=== PATIENT | female | born 1930 | race Caucasian/White ===

== ENCOUNTER 2019-02-16 06:23 | Emergency (ER) | payer MEDICARE ==
[~2019-02-16 06:23] MED LIST: ADV100/50 INH; ALB17R INH; ATOR20TA22 PO; CLOP75TA PO; LISI5TAB25 PO; METO25TA23 PO; METO50TA19 PO; SIMV5TAB56 PO
[2019-02-16] MEDS ORDERED: methylPREDNIS SUCC 125 MG/2ML IVP ONE (06:35)
[2019-02-16] MEDS ORDERED: ALBUTEROL/IPRATROPIUM 3 ML NEB NEB ONE ×2 (06:35→07:20)
[2019-02-16 07:00] LABS: PLATELET COUNT, AUTOMATED 151 K/uL (150-450)
--- NOTE | 2019-02-16 07:01 | EKG ---
FACILITY: [facility] - [place] PATIENT NAME: KRYSTA SOTO : [id number] MR: [id number] V: [id number] EXAM DATE: ORDERING PHYSICIAN: ARCHANA DASILVA TECHNOLOGIST: HC Test Reason : DYSPNEA Blood Pressure : / mmHG Vent. Rate : 072 BPM Atrial Rate : 072 BPM P-R Int : 166 ms QRS Dur : 080 ms QT Int : 426 ms P-R-T Axes : 060 -31 057 degrees QTc Int : 466 ms Sinus rhythm with occasional premature ventricular complexes Left axis deviation Anterior infarct , age undetermined Abnormal ECG When compared with ECG of 13-APR-2017 08:30, premature ventricular complexes are now present premature atrial complexes are no longer present Confirmed by Carlos Maradiaga ([id number]) on 02/16/2019 1:05:50 PM Referred By: VIDYA Confirmed By:Carlos Cesar
--- NOTE | 2019-02-16 07:10 | ER Report ---
History and Physical Time Seen By MD: 07:06 Hx. of Stated Complaint: congestion, cough. started yesterday HPI/ROS CHIEF COMPLAINT: Shortness of breath HISTORY OF PRESENT ILLNESS: Patient is an 88-year-old female who presents to the emergency department for evaluation of shortness of breath. Patient states that her son was recently treated for pneumonia she feels that she may have "caught his cold". She states that last night she felt short of breath she denies any chest pain or pressure. She does have a prior past medical history for coronary artery disease and MA. She also has reported history of a thoracic aortic aneurysm that she has elected not to treat. Patient also has a history of reactive airways disease. She does have oxygen for use as needed which she did use last night. However normally she does not wear oxygen during the day or at nighttime. She denies fevers or chills. She denies nausea vomiting or abdominal pain. REVIEW OF SYSTEMS: Constitutional: No fever, no chills. Eyes: No discharge. ENT: No sore throat. Cardiovascular: No chest pain, no palpitations. Respiratory: Shortness of breath Gastrointestinal: No abdominal pain, no vomiting. Genitourinary: No hematuria. Musculoskeletal: No back pain. Skin: No rashes. Neurological: No headache. Allergies: Coded Allergies: latex (Verified Adverse Reaction, Mild, RASH, 02/16/19) ELASTIC CAUSES RASH Home Meds Active Scripts Methylprednisolone (METHYLPREDNISOLONE) 4 Mg Tab.ds.pk, 4 MG PO DIRECTED, #1 PACK Prov:PAMELA BUCHANAN MD 02/16/19 Discontinued Reported Medications Clopidogrel Bisulfate (CLOPIDOGREL) 75 Mg Tablet, 1 TAB PO QDAY, TAB 04/02/17 Discontinued Scripts Atorvastatin Calcium (LIPITOR) 20 Mg Tablet, 1 TAB PO QDAY, #90 TAB 1 Refill Prov:BEREKET SAM APRN 05/09/17 Metoprolol Succinate (METOPROLOL SUCCINATE) 25 Mg Tab.er.24h, 1 TAB PO DAILY, #90 TAB 3 Refills Prov:BEREKET SAM APRN 05/08/17 Lisinopril (LISINOPRIL) 5 Mg Tablet, 1 TAB PO DAILY, #90 TAB 3 Refills Prov:BEREKET SAM APRN 8/7/17 Past Medical/Surgical History Past medical history for coronary artery disease, hyperlipidemia, hypertension myocardial infarction also history of thoracic aortic aneurysm that she has not elected to treat surgically Hx Smoking: No Smoking Status: Former Smoker Exposure to Second Hand Smoke?: No Constitutional Vital Sign - Last 24 Hours 02/16/19 02/16/19 02/16/19 02/16/19 06:28 06:39 06:45 06:50 Temp 97.7 Pulse 74 68 Resp 14 16 B/P (MAP) 167/74 Pulse Ox 88 96 O2 Delivery Room Air Nasal Cannula O2 Flow Rate 2.0 2.0 02/16/19 02/16/19 02/16/19 02/16/19 06:58 07:00 07:17 07:30 Pulse 71 67 70 Resp 16 23 25 B/P (MAP) 156/69 (98) 165/70 (101) 165/69 (101) Pulse Ox 97 95 02/16/19 02/16/19 02/16/19 02/16/19 07:36 07:36 07:44 08:00 Pulse 67 73 81 Resp 16 16 21 B/P (MAP) 141/58 (85) Pulse Ox 93 94 O2 Delivery Nasal Cannula O2 Flow Rate 2.0 02/16/19 02/16/19 08:30 09:12 Pulse 83 Resp 21 B/P (MAP) 133/65 (87) Pulse Ox 94 Physical Exam General Appearance: The patient is alert, has no immediate need for airway protection and no signs of toxicity. Eyes: Pupils equal and round no pallor or injection. ENT, Mouth: Mucous membranes are moist. Respiratory: There are no retractions, lungs are clear to auscultation. Cardiovascular: Regular rate and rhythm. Gastrointestinal: Abdomen is soft and non tender, no masses, bowel sounds normal. Neurological: Awake and alert Skin: Warm and dry, no rashes. Musculoskeletal: Neck is supple non tender. Extremities are nontender, nonswollen and have full range of motion. [ ] Medical Decision Making Data Points Result Diagram: 02/16/19 0640 02/16/19 0640 Laboratory Hematology Test 02/16/19 06:40 02/16/19 07:17 Red Blood Count 5.44 M/uL (4.17-5.56) Mean Corpuscular Volume 82.1 fL (80.0-96.0) Mean Corpuscular Hemoglobin 26.8 pg (26.0-33.0) Mean Corpuscular Hemoglobin Concent 32.7 g/dL (32.0-36.0) Red Cell Distribution Width 15.0 % (11.5-14.5) Mean Platelet Volume 7.2 fL (7.2-11.1) Neutrophils (%) (Auto) 56.6 % (39.4-72.5) Lymphocytes (%) (Auto) 28.9 % (17.6-49.6) Monocytes (%) (Auto) 12.1 % (4.1-12.4) Eosinophils (%) (Auto) 1.7 % (0.4-6.7) Basophils (%) (Auto) 0.7 % (0.3-1.4) Nucleated RBC Relative Count (auto) 0.2 /100WBC Neutrophils # (Auto) 2.3 K/uL (2.0-7.4) Lymphocytes # (Auto) 1.2 K/uL (1.3-3.6) Monocytes # (Auto) 0.5 K/uL (0.3-1.0) Eosinophils # (Auto) 0.1 K/uL (0.0-0.5) Basophils # (Auto) 0.0 K/uL (0.0-0.1) Nucleated RBC Absolute Count (auto) 0.01 K/uL D-Dimer Quantitative (PE/DVT) 8.81 ug/ml (0-0.50) Sodium Level 139 mmol/L (137-145) Potassium Level 3.9 mmol/L (3.5-5.0) Chloride Level 103 mmol/L (98-107) Carbon Dioxide Level 27 mmol/L (22-31) Blood Urea Nitrogen 15 mg/dl (7-18) Creatinine 0.90 mg/dl (0.52-1.04) Glomerular Filtration Rate Calc 59.1 Random Glucose 93 mg/dl (75-110) Lactate 2.1 mmol/L (0.7-2.1) Calcium Level 8.5 mg/dl (8.4-10.2) Total Bilirubin 0.4 mg/dl (0.2-1.3) Aspartate Amino Transf (AST/SGOT) 23 U/L (0-35) Alanine Aminotransferase (ALT/SGPT) 17 U/L (0-56) Alkaline Phosphatase 109 U/L (0-126) Troponin I < 0.012 ng/ml B-Type Natriuretic Peptide 211 pg/ml (0-100) Total Protein 7.5 g/dl (6.3-8.2) Albumin 3.9 g/dl (3.5-5.0) Urine Color Yellow Urine Clarity Slightly-cloudy Urine pH 5.0 pH (4.8-9.5) Urine Specific [place] 1.021 Urine Protein 30 mg/dL (NEGATIVE) Urine Glucose (UA) Negative mg/dL (NEGATIVE) Urine Ketones Negative mg/dL (NEGATIVE) Urine Blood Small (NEGATIVE) Urine Nitrite Negative (NEGATIVE) Urine Bilirubin Negative (NEGATIVE) Urine Urobilinogen 2.0 mg/dL (0.2-1.9) Urine Leukocyte Esterase Large (NEGATIVE) Urine RBC 31 /HPF (0-2/HPF) Urine WBC 78 /HPF (0-5/HPF) Urine Squamous Epithelial Cells Many /LPF (</=FEW) Urine Transitional Epithelial Cells Many /LPF (NONE-FEW) Urine Bacteria Negative /HPF (NONE-FEW) Urine Mucus Few /HPF (NONE-FEW) Chemistry Test 02/16/19 06:40 02/16/19 07:17 White Blood Count 4.1 k/uL (4.5-11.0) Red Blood Count 5.44 M/uL (4.17-5.56) Hemoglobin 14.6 g/dL (12.0-16.0) Hematocrit 44.6 % (34.0-47.0) Mean Corpuscular Volume 82.1 fL (80.0-96.0) Mean Corpuscular Hemoglobin 26.8 pg (26.0-33.0) Mean Corpuscular Hemoglobin Concent 32.7 g/dL (32.0-36.0) Red Cell Distribution Width 15.0 % (11.5-14.5) Platelet Count 151 K/uL (150-450) Mean Platelet Volume 7.2 fL (7.2-11.1) Neutrophils (%) (Auto) 56.6 % (39.4-72.5) Lymphocytes (%) (Auto) 28.9 % (17.6-49.6) Monocytes (%) (Auto) 12.1 % (4.1-12.4) Eosinophils (%) (Auto) 1.7 % (0.4-6.7) Basophils (%) (Auto) 0.7 % (0.3-1.4) Nucleated RBC Relative Count (auto) 0.2 /100WBC Neutrophils # (Auto) 2.3 K/uL (2.0-7.4) Lymphocytes # (Auto) 1.2 K/uL (1.3-3.6) Monocytes # (Auto) 0.5 K/uL (0.3-1.0) Eosinophils # (Auto) 0.1 K/uL (0.0-0.5) Basophils # (Auto) 0.0 K/uL (0.0-0.1) Nucleated RBC Absolute Count (auto) 0.01 K/uL D-Dimer Quantitative (PE/DVT) 8.81 ug/ml (0-0.50) Glomerular Filtration Rate Calc 59.1 Lactate 2.1 mmol/L (0.7-2.1) Calcium Level 8.5 mg/dl (8.4-10.2) Total Bilirubin 0.4 mg/dl (0.2-1.3) Aspartate Amino Transf (AST/SGOT) 23 U/L (0-35) Alanine Aminotransferase (ALT/SGPT) 17 U/L (0-56) Alkaline Phosphatase 109 U/L (0-126) Troponin I < 0.012 ng/ml B-Type Natriuretic Peptide 211 pg/ml (0-100) Total Protein 7.5 g/dl (6.3-8.2) Albumin 3.9 g/dl (3.5-5.0) Urine Color Yellow Urine Clarity Slightly-cloudy Urine pH 5.0 pH (4.8-9.5) Urine Specific [place] 1.021 Urine Protein 30 mg/dL (NEGATIVE) Urine Glucose (UA) Negative mg/dL (NEGATIVE) Urine Ketones Negative mg/dL (NEGATIVE) Urine Blood Small (NEGATIVE) Urine Nitrite Negative (NEGATIVE) Urine Bilirubin Negative (NEGATIVE) Urine Urobilinogen 2.0 mg/dL (0.2-1.9) Urine Leukocyte Esterase Large (NEGATIVE) Urine RBC 31 /HPF (0-2/HPF) Urine WBC 78 /HPF (0-5/HPF) Urine Squamous Epithelial Cells Many /LPF (</=FEW) Urine Transitional Epithelial Cells Many /LPF (NONE-FEW) Urine Bacteria Negative /HPF (NONE-FEW) Urine Mucus Few /HPF (NONE-FEW) Coagulation Test 02/16/19 06:40 D-Dimer Quantitative (PE/DVT) 8.81 ug/ml Urinalysis Test 02/16/19 07:17 Urine Color Yellow Urine Clarity Slightly-cloudy Urine pH 5.0 pH (4.8-9.5) Urine Specific [place] 1.021 Urine Protein 30 mg/dL (NEGATIVE) Urine Glucose (UA) Negative mg/dL (NEGATIVE) Urine Ketones Negative mg/dL (NEGATIVE) Urine Blood Small (NEGATIVE) Urine Nitrite Negative (NEGATIVE) Urine Bilirubin Negative (NEGATIVE) Urine Urobilinogen 2.0 mg/dL (0.2-1.9) Urine Leukocyte Esterase Large (NEGATIVE) Urine RBC 31 /HPF (0-2/HPF) Urine WBC 78 /HPF (0-5/HPF) Urine Squamous Epithelial Cells Many /LPF (</=FEW) Urine Transitional Epithelial Cells Many /LPF (NONE-FEW) Urine Bacteria Negative /HPF (NONE-FEW) Urine Mucus Few /HPF (NONE-FEW) Microbiology Microbiology Date/Time Source Procedure Growth Status 02/16/19 07:20 Blood Peripheral Draw Blood Culture - Preliminary NO GROWTH SO FAR, SET LATE. REINCUBATED Resulted 02/16/19 06:40 Blood Peripheral Draw Blood Culture - Preliminary NO GROWTH SO FAR, SET LATE. REINCUBATED Resulted EKG/Imaging EKG Interpretation EKG shows sinus rhythm with occasional PVCs no significant ST segment or T-wave abnormalities. Monitor Interpretation: Normal Sinus Rhythm ED Course/Re-evaluation ED Course CT angiogram of the chest from 2013 showed diffuse aneurysmal dilatation of the thoracic aorta with extensive eccentric mural thrombus in the descending thoracic aorta appearing similar to August 2013. CT scan today showed enlargement of the thoracic aortic aneurysm to 5.4 cm no active dissection or bleeding was noted CT was negative for pulmonary embolism as well as pneumonia. CT findings were discussed with the patient, she is aware of her aneurysm and has elected not to perform any type of surgery despite advancing in size. She is aware and is not seeking to address this problem at this time. Patient is feeling improved after breathing treatments and oxygen we will discharge home with instructions to follow-up with her primary care provider Monday if she is not feeling better or to return sooner if symptoms worsen Decision to Disposition Date: February 16, 2019 Decision to Disposition Time: 09:13 Depart Departure Latest Vital Signs Vital Signs Date Time Temp Pulse Resp B/P (MAP) Pulse Ox O2 Delivery O2 Flow Rate FiO2 02/16/19 09:12 133/65 (87) 02/16/19 08:30 83 21 94 02/16/19 07:36 Nasal Cannula 2.0 02/16/19 06:28 97.7 Impression: Primary Impression: COPD exacerbation Condition: Improved Disposition: HOME OR SELF-CARE Referrals: BEREKET ASM APRN [employer] (PCP) 2 Days if symptoms persist New Scripts Methylprednisolone (METHYLPREDNISOLONE) 4 Mg Tab.ds.pk 4 MG PO DIRECTED, #1 PACK Prov: PAMELA BUCHANAN MD 02/16/19 Patient Instructions: COPD (Chronic Obstructive Pulmonary Disease) (DC) Additional Instructions: Wear you oxygen during the day and at nighttime for the next 72 hours then as needed. Use your prescribed albuterol inhaler 2 puffs by mouth every 6 hours for the next 72 hours then 1-2 puffs by mouth every 4-6 hours as needed for cough or shortness of breath. Follow-up with your primary care provider on Monday for symptoms persist or return to the emergency department immediately if her symptoms worsen at any time. PAMELA BUCHANAN MD February 16, 2019 07:10
--- NOTE | 2019-02-16 07:35 | RADIOLOGY IMAGING REPORT ---
FACILITY: [facility] PATIENT NAME: Lisa Elam : 1930 MR: [id number] V: [id number] EXAM DATE: ORDERING PHYSICIAN: ARCHANA DASILVA TECHNOLOGIST: Location: [facility] Patient: Lisa Elam : 1930 Visit/Account:[id number] Date of Sevice: 02/16/2019 CHEST PA LAT HISTORY: Respiratory distress. COMPARISON: Chest CTs 02/28/2014 and 08/02/2013. No prior chest x-rays. TECHNIQUE: PA and lateral views of the chest. FINDINGS: Tubes/lines/hardware: There are coronary stents. Pulmonary/pleura: There is hyperinflation, flattening of the diaphragm, and mild prominence of the re trosternal airspace. Lungs are clear. There is no pneumothorax or pleural effusion. Cardiomediastinal: Cardiac and mediastinal silhouettes are within normal limits. There is mild aortic calcification. Bones/soft tissues: No acute osseous abnormality. There is mild degenerative change of the spine. The visible abdomen is normal. IMPRESSION: 1. No acute cardiopulmonary process. 2. Hyperinflation. Findings can be seen with deep inspiration as well as COPD. Report Dictated By: Mel Read at 02/16/2019 7:25 AM Report E-Signed By: Mel Read at 02/16/2019 7:30 AM WSN:[id number]
[2019-02-16] MEDS ORDERED: IOPAMIDOL 76% 150 ML INFUS BTL 150 ML ONE (08:16)
[2019-02-16] MEDS ORDERED: NS(*) 0.9% 50 ML BAG 50 ML ONE (08:19)
[2019-02-16] MEDS ORDERED: METH4TAB66 PO (09:01)
--- NOTE | 2019-02-16 09:09 | RADIOLOGY IMAGING REPORT ---
FAC[facility] PATIENT NAME: Lisa Elam : 1930 MR: [id number] V: [id number] EXAM DATE: ORDERING PHYSICIAN: PAMELA BUCHANAN TECHNOLOGIST: Location: [facility] Patient: Lisa Elam : 1930 Visit/Account:[id number] Date of Sevice: 02/16/[address] angiogram with contrast. HISTORY: Shortness of breath, history of 4.7 cm thoracic aortic aneurysm. COMPARISON: 02/28/2014. 3 mm thick and [address] images were obtained of the chest using 75 mL intravenous Isovue-3 70. 3-D SLAB nip instruction images were obtained of the pulmonary arteries. One of the following dos e optimization techniques was utilized in the performance of this exam: Automated exposure control; a djustment of the mA and/or kV according to the patient's size; or use of an iterative reconstruction technique. Specific details can be referenced in the facility's radiology CT exam operational polic y. FINDINGS: The central pulmonary arteries are mildly enlarged. No filling defects are identified to suggest acut e pulmonary embolism. The ascending aorta measures 5.2 cm in AP diameter, increased compared to previ ous. The upper descending aorta measures 3.6 cm in AP diameter, increased compared to previous. The l ower descending aorta measures 4.1 cm in oblique diameter. The thoracic aorta is moderately calcified . A moderate amount of mural thrombus is present in the descending aorta. The coronary arteries are h eavily calcified. The heart size is normal. No bulky adenopathy. The trachea and central bronchi are unremarkable. The lungs are voluminous. Mild streaky densities are scattered in the periphery of both lungs. Mild degenerative changes are present in the spine. The upper abdominal aorta is calcified and mildly ectatic. IMPRESSION: Negative for acute pulmonary embolism. Aortic and coronary atherosclerosis. 5.2 cm thoracic aortic aneurysm, increased in size compared to previous. COPD. Results were discussed with PAMELA BUCHANAN at 02/16/2019 8:59 AM. Report Dictated By: Salbador Clinton MD at 02/16/2019 8:44 AM Report E-Signed By: Salbador Clinton MD at 02/16/2019 9:05 AM WSN:[id number]
[2019-02-16 09:12] VITALS: BP 133/65
[2019-02-17] MEDS ORDERED: AZIT-18 PO (19:58)
== END 2019-02-16 09:16 | disposition home or self-care (01) ==
LOC: ER 08:15
DX: J44.1 Chronic obstructive pulmonary disease with (acute) exacerbation (principal)
CPT/HCPCS: 36415; 71046; 71275; 81001; 83605; 83880; 84484; 85025; 85379; 87040; 93005; 94640; 96374; 99284; J2930; J7050; J7620; Q9967; 82040; 82247; 82310; 82374; 82435; 82565; 82947; 84075; 84132; 84155; 84295; 84450; 84460; 84520

== ENCOUNTER 2019-02-17 16:58 | Emergency (ER) | payer MEDICARE ==
[~2019-02-17 16:58] MED LIST changes: +METH4TAB66 PO
--- NOTE | 2019-02-17 17:18 | ER Report ---
History and Physical Time Seen By MD: 17:06 HPI/ROS CHIEF COMPLAINT: Shortness of breath HISTORY OF PRESENT ILLNESS: This is an 88-year-old female presents to the emergency department for symptoms similar to yesterday, shortness of breath. She had an extensive workup yesterday, a CTA was negative for a pulmonary embolus, she does have a known thoracic aortic aneurysm, in 2013 it measured 4.7 cm, yesterday showing 5.2 cm. Patient was updated on this information. She did receive nebulizers, given steroids to go home, was feeling better yesterday and through the morning, she states that around noon today she began to have chest congestion again and coughing up small amount of mucus. She denies chest pain, diaphoresis, rashes, nausea or vomiting. Denies headaches. REVIEW OF SYSTEMS: Constitutional: No fever, no chills. Eyes: No discharge. ENT: No sore throat. Cardiovascular: No chest pain, no palpitations. Respiratory: As above. Gastrointestinal: No abdominal pain, no vomiting. Genitourinary: No hematuria. Musculoskeletal: No back pain. Skin: No rashes. Neurological: No headache. Allergies: Coded Allergies: latex (Verified Adverse Reaction, Mild, RASH, 02/16/19) ELASTIC CAUSES RASH Home Meds Active Scripts Azithromycin 250 Mg Tab (AZITHROMYCIN 250 MG TAB) 250 Mg Tablet, 1 TAB PO QDAY, #4 TAB 1 tab a day until gone. Prov:CARLEY VIRK-BC 02/17/19 Methylprednisolone (METHYLPREDNISOLONE) 4 Mg Tab.ds.pk, 4 MG PO DIRECTED, #1 PACK Prov:PAMELA BUCHANAN MD 02/16/19 Discontinued Reported Medications Clopidogrel Bisulfate (CLOPIDOGREL) 75 Mg Tablet, 1 TAB PO QDAY, TAB 04/02/17 Discontinued Scripts Atorvastatin Calcium (LIPITOR) 20 Mg Tablet, 1 TAB PO QDAY, #90 TAB 1 Refill Prov:BEREKET SAM APRN-C 05/09/17 Metoprolol Succinate (METOPROLOL SUCCINATE) 25 Mg Tab.er.24h, 1 TAB PO DAILY, #90 TAB 3 Refills Prov:BEREKET SAM APRN-C 05/08/17 Lisinopril (LISINOPRIL) 5 Mg Tablet, 1 TAB PO DAILY, #90 TAB 3 Refills Prov:BEREKET SAM EDWARDO COMMUNITY SERVICE MANAGER-C 05/08/17 Past Medical/Surgical History The patient has a past medical and surgical history of macular degeneration, hard of hearing, myocardial infarction, aortic aneurysm, increasing in size, mild cardial infarction, congestive heart failure, coronary artery disease, 3 coronary artery stents, hyperlipidemia, asthma, bronchitis, emphysema, GERD, hysterectomy. Reviewed Nurses Notes: Yes Hx Smoking: No Smoking Status: Former Smoker Exposure to Second Hand Smoke?: No Constitutional Vital Sign - Last 24 Hours 02/17/19 02/17/19 02/17/19 02/17/19 17:01 17:05 17:07 17:13 Temp 98.3 Pulse 84 77 Resp 16 28 B/P (MAP) 196/98 (130) 196/98 180/81 (114) Pulse Ox 86 96 O2 Delivery Room Air 02/17/19 02/17/19 02/17/19 02/17/19 17:28 17:29 17:43 17:45 Pulse 74 73 78 Resp 19 16 18 Pulse Ox 95 94 O2 Flow Rate 2.0 02/17/19 02/17/19 02/17/19 02/17/19 17:58 18:13 18:28 18:30 Pulse 87 89 82 Resp 24 23 36 B/P (MAP) 159/79 (105) Pulse Ox 95 93 02/17/19 02/17/19 02/17/19 02/17/19 18:43 18:45 19:00 19:05 Pulse 79 83 81 Resp 22 19 15 B/P (MAP) 144/72 (96) Pulse Ox 96 93 95 02/17/19 02/17/19 02/17/19 02/17/19 19:10 19:30 19:40 20:00 Pulse 83 82 Resp 20 14 B/P (MAP) 149/68 (95) 150/69 (96) Pulse Ox 93 89 02/17/19 02/17/19 02/17/19 02/17/19 20:10 20:12 20:12 20:19 Pulse 73 84 92 Resp 15 20 1 Pulse Ox 98 95 O2 Delivery Nasal Cannula O2 Flow Rate 1.0 02/17/19 20:32 B/P (MAP) 154/65 (94) Physical Exam General Appearance: The patient is alert, has no immediate need for airway protection and no signs of toxicity. Eyes: Pupils equal and round no pallor or injection. ENT, Mouth: Mucous membranes are moist. Respiratory: There are no retractions, coarse in the right upper and left upper lobes, otherwise unremarkable. Cardiovascular: Regular rate and rhythm. No murmurs, clicks or rubs. Gastrointestinal: Abdomen is soft and non tender, no masses, bowel sounds normal. Neurological: Alert and oriented 4. Moving all extremities. Following all commands. No focal neuro deficits. Skin: Warm and dry, no rashes. Musculoskeletal: Neck is supple non tender. Extremities are nontender, nonswollen and have full range of motion. DIFFERENTIAL DIAGNOSIS: After history and physical exam differential diagnosis was considered for shortness of breath including but not limited to pulmonary infectious process, COPD, asthma, pulmonary embolus and congestive heart failure. Medical Decision Making Data Points Result Diagram: 02/17/19 1717 02/17/19 1717 Laboratory Hematology Test 02/17/19 17:17 Red Blood Count 5.34 M/uL (4.17-5.56) Mean Corpuscular Volume 82.1 fL (80.0-96.0) Mean Corpuscular Hemoglobin 26.3 pg (26.0-33.0) Mean Corpuscular Hemoglobin Concent 32.1 g/dL (32.0-36.0) Red Cell Distribution Width 15.0 % (11.5-14.5) Mean Platelet Volume 7.6 fL (7.2-11.1) Neutrophils (%) (Auto) 89.0 % (39.4-72.5) Lymphocytes (%) (Auto) 5.7 % (17.6-49.6) Monocytes (%) (Auto) 5.2 % (4.1-12.4) Eosinophils (%) (Auto) 0.0 % (0.4-6.7) Basophils (%) (Auto) 0.1 % (0.3-1.4) Nucleated RBC Relative Count (auto) 0.0 /100WBC Neutrophils # (Auto) 11.8 K/uL (2.0-7.4) Lymphocytes # (Auto) 0.8 K/uL (1.3-3.6) Monocytes # (Auto) 0.7 K/uL (0.3-1.0) Eosinophils # (Auto) 0.0 K/uL (0.0-0.5) Basophils # (Auto) 0.0 K/uL (0.0-0.1) Nucleated RBC Absolute Count (auto) 0.00 K/uL Sodium Level 139 mmol/L (137-145) Potassium Level 4.3 mmol/L (3.5-5.0) Chloride Level 103 mmol/L (98-107) Carbon Dioxide Level 27 mmol/L (22-31) Blood Urea Nitrogen 22 mg/dl (7-18) Creatinine 1.00 mg/dl (0.52-1.04) Glomerular Filtration Rate Calc 52.3 Random Glucose 113 mg/dl (75-110) Calcium Level 8.8 mg/dl (8.4-10.2) Total Bilirubin 0.2 mg/dl (0.2-1.3) Aspartate Amino Transf (AST/SGOT) 26 U/L (0-35) Alanine Aminotransferase (ALT/SGPT) 18 U/L (0-56) Alkaline Phosphatase 105 U/L (0-126) Total Protein 7.6 g/dl (6.3-8.2) Albumin 4.0 g/dl (3.5-5.0) Chemistry Test 02/17/19 17:17 White Blood Count 13.2 k/uL (4.5-11.0) Red Blood Count 5.34 M/uL (4.17-5.56) Hemoglobin 14.1 g/dL (12.0-16.0) Hematocrit 43.9 % (34.0-47.0) Mean Corpuscular Volume 82.1 fL (80.0-96.0) Mean Corpuscular Hemoglobin 26.3 pg (26.0-33.0) Mean Corpuscular Hemoglobin Concent 32.1 g/dL (32.0-36.0) Red Cell Distribution Width 15.0 % (11.5-14.5) Platelet Count 172 K/uL (150-450) Mean Platelet Volume 7.6 fL (7.2-11.1) Neutrophils (%) (Auto) 89.0 % (39.4-72.5) Lymphocytes (%) (Auto) 5.7 % (17.6-49.6) Monocytes (%) (Auto) 5.2 % (4.1-12.4) Eosinophils (%) (Auto) 0.0 % (0.4-6.7) Basophils (%) (Auto) 0.1 % (0.3-1.4) Nucleated RBC Relative Count (auto) 0.0 /100WBC Neutrophils # (Auto) 11.8 K/uL (2.0-7.4) Lymphocytes # (Auto) 0.8 K/uL (1.3-3.6) Monocytes # (Auto) 0.7 K/uL (0.3-1.0) Eosinophils # (Auto) 0.0 K/uL (0.0-0.5) Basophils # (Auto) 0.0 K/uL (0.0-0.1) Nucleated RBC Absolute Count (auto) 0.00 K/uL Glomerular Filtration Rate Calc 52.3 Calcium Level 8.8 mg/dl (8.4-10.2) Total Bilirubin 0.2 mg/dl (0.2-1.3) Aspartate Amino Transf (AST/SGOT) 26 U/L (0-35) Alanine Aminotransferase (ALT/SGPT) 18 U/L (0-56) Alkaline Phosphatase 105 U/L (0-126) Total Protein 7.6 g/dl (6.3-8.2) Albumin 4.0 g/dl (3.5-5.0) EKG/Imaging EKG Interpretation 12 lead EKG: Time of EKG 1715. Rhythm: Sinus rhythm, occasional PVC, ventricular rate 78 bpm. [place]: normal QRS: normal ST segments: No ST depression or elevation identified. No significant changes from the 02/16/2019 EKG, other than amplitude of the unifocal PVC's. Imaging PATIENT NAME: Lisa Elam : 1930 MR: [id number] V: [id number] EXAM DATE: [id number] ORDERING PHYSICIAN: CARLEY VIRK TECHNOLOGIST: Location: [facility] - [place] Patient: Lisa Elam : 1930 Visit/Account:[id number] Date of Sevice: 02/17/2019 CHEST PA LAT COMPARISONS: 2 view chest dated February 16, 2019 ADDITIONAL PERTINENT HISTORY: History of asthma and congestion FINDINGS: Cardiomediastinal silhouette: Negative. Pulmonary vasculature: Negative. Lung kent: Negative. Pleural spaces: Negative. Osseous structures: Negative. Surrounding soft tissues: Negative. IMPRESSION: No evidence of acute cardiopulmonary disease. Report Dictated By: Bakari Stevens MD at 02/17/2019 6:54 PM Report E-Signed By: Bakari Stevens MD at 02/17/2019 6:56 PM WSN:[email or web address] ED Course/Re-evaluation Clinical Indication for ER IV: IV Access ED Course The patient was admitted to room. A history and physical were obtained. Differential diagnoses were considered. An x-ray of the chest was negative for any acute cardiopulmonary process. An IV was started. A CBC, CMP were obtained. There was a jump in the patient's white blood cell count from 4.1 yesterday 213.2 today with a left shift, chemistry unremarkable. Patient was given 2 DuoNeb's with improvement of her symptoms, she continues to produce small amounts of mucus. Although the chest x-ray was negative, with the elevation in white blood cell counts I did start the patient on azithromycin tonight, she was sent home with the remainder of the azithromycin. She was also sent home with an inhaler, she is currently taking prednisone dose prescribed to her yesterday. Patient will follow-up with her primary care provider this week for reevaluation. She had no other questions or concerns, was agreeable with this plan of care and discharged home. Encouraged to return to the ER should she de velop any other concerning symptoms such as fevers, chest pain or increased shortness breath. Decision to Disposition Date: February 17, 2019 Decision to Disposition Time: 19:57 Depart Departure Latest Vital Signs Vital Signs Date Time Temp Pulse Resp B/P (MAP) Pulse Ox O2 Delivery O2 Flow Rate FiO2 02/17/19 20:32 154/65 (94) 02/17/19 20:19 92 1 02/17/19 20:12 95 Nasal Cannula 1.0 02/17/19 17:05 98.3 Impression: Primary Impression: Bronchitis Condition: Improved Disposition: HOME OR SELF-CARE Referrals: BEREKET SAM APRN COMMUNITY SERVICE MANAGER-C (PCP) 5 Days New Scripts Azithromycin 250 Mg Tab (AZITHROMYCIN 250 MG TAB) 250 Mg Tablet 1 TAB PO QDAY, #4 TAB 1 tab a day until gone. Prov: CARLEY VIRK COMMUNITY SERVICE MANAGER-BC 02/17/19 Patient Instructions: Acute Bronchitis (ED) Additional Instructions: You may have an early onset pneumonia, with the changes in your blood work today, I will start you on Azithromycin tonight, you will have 4 more days worth. Use the inhaler as needed. Please follow up with Bereket Martinez or one of her partners within the next 2-5 days for reevaluation. Be sure to drink plenty of fluids. Get plenty of rest. Return to the ED for any other concerns or worsening symptoms. CARLEY VIRK COMMUNITY SERVICE MANAGER-BC February 17, 2019 17:18
[2019-02-17] MEDS ORDERED: ALBUTEROL/IPRATROPIUM 3 ML NEB NEB ONE ×2 (17:30→19:55)
[2019-02-17 17:37] LABS: PLATELET COUNT, AUTOMATED 172 K/uL (150-450)
--- NOTE | 2019-02-17 18:14 | EKG ---
FACILITY: [facility] PATIENT NAME: KRYSTA SOTO : [id number] MR: [id number] V: [id number] EXAM DATE: ORDERING PHYSICIAN: CARLEY VIRK TECHNOLOGIST: TODD Test Reason : Blood Pressure : / mmHG Vent. Rate : 078 BPM Atrial Rate : 078 BPM P-R Int : 164 ms QRS Dur : 074 ms QT Int : 398 ms P-R-T Axes : 069 -29 065 degrees QTc Int : 453 ms Sinus rhythm with occasional premature ventricular complexes Anterior infarct (cited on or before 16-FEB-2019) Abnormal ECG When compared with ECG of 16-FEB-2019 06:48, No significant change was found Confirmed by NATHALIE GREEN ([id number]) on 02/17/2019 6:33:14 PM Referred By: MAURY Confirmed By:NATHALIE GREEN
--- NOTE | 2019-02-17 19:01 | RADIOLOGY IMAGING REPORT ---
[facility] PATIENT NAME: Lisa Elam : 1930 MR: [id number] V: [id number] EXAM DATE: ORDERING PHYSICIAN: CARLEY VIRK TECHNOLOGIST: Location: Patient: Lisa Elam : 1930 Visit/Account:[id number] Date of Sevice: 02/17/2019 CHEST PA LAT COMPARISONS: 2 view chest dated February 16, 2019 ADDITIONAL PERTINENT HISTORY: History of asthma and congestion FINDINGS: Cardiomediastinal silhouette: Negative. Pulmonary vasculature: Negative. Lung kent: Negative. Pleural spaces: Negative. Osseous structures: Negative. Surrounding soft tissues: Negative. IMPRESSION: No evidence of acute cardiopulmonary disease. Report Dictated By: Bakari Stevens MD at 02/17/2019 6:54 PM Report E-Signed By: Bakari Stevens MD at 02/17/2019 6:56 PM [id number]:[email or web address]
[2019-02-17] MEDS ORDERED: AZITHROMYCIN 250 MG TAB PO ONE (19:55)
[2019-02-17] MEDS ORDERED: ALBUTEROL 8 GM INHALER INH ONE (19:55)
[2019-02-17] MEDS ORDERED: AZIT-18 PO (19:58)
[2019-02-17 20:32] VITALS: BP 154/65
== END 2019-02-17 20:39 | disposition home or self-care (01) ==
LOC: ER 17:10
DX: J40 Bronchitis, not specified as acute or chronic (principal)
CPT/HCPCS: 71046; 85025; 93005; 94640; 99284; J7620; Q0144; 82040; 82247; 82310; 82374; 82435; 82565; 82947; 84075; 84132; 84155; 84295; 84450; 84460; 84520